=== PATIENT | female | born 2000 | race Caucasian/White ===

== ENCOUNTER 2023-05-25 17:48 | Emergency (ER) | payer OTHER, SELFPAY ==
[2023-05-25 17:51] VITALS: BP 114/75
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
== END 2023-05-25 19:52 | disposition home or self-care (01) ==
LOC: EMR 17:48
PROVIDERS: EMERGENCY PHYSICIAN Emergency Medicine
DX: S61.442A Puncture wound with foreign body of left hand, initial encounter (principal); W45.8XXA Other foreign body or object entering through skin, initial encounter; Y93.89 Activity, other specified; Y92.89 Other specified places as the place of occurrence of the external cause; Y99.0 Civilian activity done for income or pay
CPT/HCPCS: 10120; 99283